=== PATIENT | male | born 1950 | race Caucasian/White ===

== ENCOUNTER → 2020-05-19 14:17 | Outpatient (CLI) | payer BC, MEDICARE, SELFPAY ==
[2020-05-19 14:51] LABS: Alanine Aminotransferase 22 U/L (12-78); Albumin Level 4.1 g/dl (3.5-5.0); Albumin/Globulin Ratio 1.1 (1.1-1.8); Alkaline Phosphatase 94 U/L (38-126); Anion Gap 13.8 mEq/L (5-15); Aspartate Amino Transferase 35 U/L (17-59); Bilirubin,Total 0.3 mg/dl (0.2-1.3); Blood Urea Nitrogen 16 mg/dl (9-20); Calcium 9.3 mg/dl (8.4-10.2); Carbon Dioxide 24 mmol/L (22.0-30.0); Chloride 108 mmol/L (98-107); Chol/HDL Ratio 8.3 (1-3.5); Cholesterol 231 mg/dl (140-200); Estimated Glomerular Filt Rate 83 ml/min (>60); GFR (African American) 101 ML/MIN (>60); Globulin 3.7 g/dL (1.3-3.2); Glucose 99 mg/dl (74-100); HDL Cholesterol 28 mg/dl (40-60); Potassium 4.8 mmoL/L (3.5-5.1); Sodium 141 mmol/L (136-145); Total Protein,Serum 7.8 g/dl (6.3-8.2); Triglycerides 169 mg/dl (30-150); VLDL Cholesterol 34 mg/dL (0-40)
[2020-05-19 14:59] LABS: Basophils % 0.6 % (0.1-2.0); Eosinophils # 0.1 K/mm3 (0.0-0.4); Eosinophils % 1.9 % (0.1-12.0); Hematocrit 44.6 % (42.0-52.0); Hemoglobin 14.2 g/dL (14.1-18.0); Lymphocytes # 1.6 K/mm3 (0.7-4.5); Lymphocytes % 33.1 % (10-50); Mean Corpuscular HGB Conc 31.9 g/dL (31.8-35.4); Mean Corpuscular Hemoglobin 30.6 pg (27.0-31.2); Mean Corpuscular Volume 95.9 fl (80-94); Monocytes # 0.3 K/mm3 (0.1-1.0); Monocytes % 6.5 % (1.7-9.3); Neutrophils # 2.8 K/mm3 (1.8-7.8); Platelet Count 247 K/mm3 (142-424); Red Blood Count 4.65 M/mm3 (4.60-6.20); Red Cell Distribution Width 13.8 % (11.5-17.5); White Blood Count 4.7 K/mm3 (4.8-10.8)
[2020-05-19 15:03] LABS: Direct LDL Cholesterol 157.93 mg/dL (100-129)
[2020-05-19 15:09] LABS: T4 (Thyroxine) 9.8 ug/dl (5.53-11.0)
[2020-05-19 15:22] LABS: Prostate Specific Ag Screen 1.5 ng/ml (0.0-4.0); Thyroid Stimulating Hormone 4.19 uIU/mL (0.465-4.68)
[2020-05-19 16:04] LABS: Hemoglobin A1C 5.8 % (4.0-6.0)
== END ==
PROVIDERS: Visit Provider Family Medicine
DX: E11.9 Type 2 diabetes mellitus without complications (principal); Z12.5 Encounter for screening for malignant neoplasm of prostate
CPT/HCPCS: 80053; 80061; 83036; 84436; 84443; 85025; G0103

== ENCOUNTER → 2021-08-10 07:02 | Outpatient (CLI) | payer BC, MEDICARE, SELFPAY ==
[2021-08-09 17:55] LABS: Prostate Specific Ag Screen 1.7 ng/ml (0.0-4.0)
[2021-08-12 03:44] LABS: Testosterone,Free 5.6 pg/mL (6.6-18.1)
== END ==
PROVIDERS: PCP Family Medicine; Visit Provider Family Medicine
DX: E78.5 Hyperlipidemia, unspecified (principal); Z12.5 Encounter for screening for malignant neoplasm of prostate
CPT/HCPCS: 84402; G0103